=== PATIENT | female | born 1940 | race Caucasian/White ===

== ENCOUNTER → 2016-07-31 | Outpatient (CLI) | payer OTHER ==
[~2016-07-31] MED LIST: BENTYL20 MG PO; FLEXERIL10 MG PO; LOPID600 MG PO; PRILOSEC20 MG PO; PROTONIX PO; TUDORZA PRESS400 MCG; VICODIN 5/1 TAB 5/50 PO
--- NOTE | ~2016-07-31 | MY11 ---
[facility] A Service of [facility] & [facility] RADIOLOGY TEXT RESULTS PATIENT: PAULINA ZAFAR LOCATION: [facility] : 42 UNIT #: [id number] AGE: [address]: Caro Lockwood MD SEX: F ORDER DR: [id number] [facility]. [place], [place] [address] [id number] O MR#: [id number] Acc #: [id number] NAME: PAULINA ZAFAR. : 1940 SEX: F STUDY DATE/TIME: 07/31/2016 13:10 UNIT: [facility] ROOM: STUDY DESCRIPTION: MY Mammogram Screening Dig [place] Attending Physician: Caro Lockwood M.D. Referring Physician: Caro Lockwood M.D. Ordering Physician: Caro Lockwood M.D. Primary Care Physician: Caro Lockwood M.D. MEDICAL IMAGING REPORT This report is preliminary unless electronic signature is present EXAM Digital screening mammogram, 07/31/2016 HISTORY 76-year-old woman, known left nipple inversion. Known left breast smaller than right. Family history of ovarian cancer in mother. Annual screening. COMPARISON Mammograms date to 11/12/2008 with most recent screening 07/02/2015. Followup diagnostic right breast imaging 07/16/2015. FINDINGS Digital imaging of each breast was completed utilizing a two-view examination of each breast in craniocaudal and mediolateral-oblique projections. Review and interpretation of digital mammograms include a second review in conjunction with FDA-approved CAD device. There is a normal parenchymal presentation bilaterally consistent with the patient's age. There are no breast masses imaged and no parenchymal asymmetry is visualized. There are no suspicious microcalcifications and I see no focal architectural disturbance. IMPRESSION Negative screening digital mammogram. One-year followup recommended. Patients over the age of 40 are entered into a reminder system with target due date for the next mammogram. A result letter will also be sent to the patient. BIRADS: 1 Negative Dictated by... Phillip Madrid M.D. [facility]. [facility] A Service of [facility] & [facility] RADIOLOGY TEXT RESULTS PATIENT: PAULINA ZAFAR LOCATION: [facility] #: [id number] : 42 UNIT #: [id number] AGE: [address]: Caro Lockwood MD SEX: F ORDER DR: THIS IS AN ELECTRONICALLY VERIFIED REPORT Phillip Madrid M.D. at 08/01/2016 8:08 AM Matt TD: 07/31/2016 15:51 JOB #: [id number] MEDICAL IMAGING REPORT Page 1 of 1 COPY
== END | disposition home or self-care (01) ==
LOC: CWCC 12:59
DX: Z12.31 Encounter for screening mammogram for malignant neoplasm of breast (principal); N64.59 Other signs and symptoms in breast; Z80.41 Family history of malignant neoplasm of ovary
CPT/HCPCS: G0202

== ENCOUNTER → 2016-09-08 | Outpatient (CLI) | payer OTHER ==
--- NOTE | ~2016-09-08 | CT57 ---
[facility] A Service of [facility] & [facility] RADIOLOGY TEXT RESULTS PATIENT: PAULINA ZAFAR LOCATION: [facility] : 42 UNIT #: [id number] AGE: [address]: Caro Lockwood MD SEX: F ORDER DR: [id number] [id number] [facility]. [place], [place] [address] [id number] O MR#: [id number] Acc #: [id number] NAME: PAULINA ZAFAR. : 1940 SEX: F STUDY DATE/TIME: 09/08/2016 10:19 UNIT: [facility] ROOM: STUDY DESCRIPTION: CT Chest Wo Cont Attending Physician: Caro Lockwood M.D. Referring Physician: Caro Lockwood M.D. Ordering Physician: Caro Lockwood M.D. Primary Care Physician: Caro Lockwood M.D. MEDICAL IMAGING REPORT This report is preliminary unless electronic signature is present EXAM CT chest. INDICATIONS Bronchiectasis. Shortness of air for 2 years. Dyspnea on exertion. TECHNIQUE CT of the chest without contrast. Coronal and sagittal reconstructions were obtained. This CT exam was performed with one or more of the following radiation dose reduction techniques: automatic exposure control, adjustment of mA and/or kV according to patient size, and iterative reconstruction. COMPARISON CT chest 02/21/2016, and lung cancer screening 02/07/2016. FINDINGS The band-like area of atelectasis and volume loss in the medial right middle lobe is unchanged from the prior study. No new or suspicious pulmonary findings. There is a benign granuloma in the left upper lobe. No pathologically enlarged mediastinal or hilar lymph nodes. There is moderate coronary artery calcifications. No pericardial or pleural effusion. IMPRESSION 1. Area of linear scarring or atelectasis in the medial aspect of the right middle lobe is unchanged from 02/07/2016. Stability is reassuring for a benign process. I recommend return to annual lung cancer screening with the next screening study due in 2018. 2. ACR-LungRADS classification 2: Benign examination. [facility] A Service of [facility] & [facility] RADIOLOGY TEXT RESULTS PATIENT: PAULINA ZAFAR LOCATION: [facility] : 42 UNIT #: [id number] AGE: [address]: Caro Lockwood MD SEX: F ORDER DR: Dictated by... Nomi Jennings M.D. THIS IS AN ELECTRONICALLY VERIFIED REPORT Nomi Jennings M.D. at 09/08/2016 4:54 PM ELVIRA/nelly TD: 09/08/2016 15:30 JOB #: [id number] MEDICAL IMAGING REPORT Page 1 of 1 COPY
== END | disposition home or self-care (01) ==
LOC: CCAT 09-04 09:20
DX: J47.9 Bronchiectasis, uncomplicated (principal); R91.8 Other nonspecific abnormal finding of lung field
CPT/HCPCS: 71250